=== PATIENT | male | born 1970 | race Caucasian/White ===

== ENCOUNTER 2023-09-28 12:43 | Emergency (ER) | payer BC, SELFPAY ==
[2023-09-28 12:45] VITALS: BP 161/96
--- NOTE | 2023-09-28 13:19 | ED.GENMED ---
History of Present Illness
General
Chief Complaint: Dizziness
Source: patient
Exam Limitations: none
Time Seen by Provider: 09/28/23 12:54
Nursing documentation reviewed up to this point in time: agreed with
Travel History
Have you had any contact with someone who has COVID-19?: No
Do you have any symptoms of coronavirus? Fever > 100 degrees, chills, cough, shortness of breath, sore throat, loss of taste or smell, muscle aches, or headache?: No
History of Present Illness
History of Present Illness:
52-year-old male presents to the emergency department complaining of dizziness/lightheadedness, weakness and fogginess when he woke up this morning. He recently got over COVID, and is still having congestion. No aggravating relieving factors.
Past History
Past History
ED Past Medical History: HTN and Hypercholesterolemia
ED Past Surgical History: Other (Adenoidectomy)
Social History
Tobacco: Non-smoker
Alcohol: None
Drug: None
Employment: Employed
Review of Systems
Review of Systems
Allergies reviewed?: Yes
All Other Systems: Not applicable
Constitutional: Reports no symptoms
EENT: Reports other (Congestion)
Respiratory: Reports no symptoms
Cardiac: Reports no symptoms
ABD/GI: Reports no symptoms
: Reports no symptoms
Musculoskeletal: Reports no symptoms
Skin: Reports no symptoms
Neurological: Reports dizzy and weakness
Endocrine: Reports no symptoms
Hematologic/Lymphatic: Reports no symptoms
Psychiatric: Reports no symptoms
Phy Exam
Physical Exam
Physical Exam:
Physical Exam
General: no apparent distress, not acutely ill
Neck: supple. no meningeal signs. normal posterior pharynx
Heart: s1/s2 regular rate and rhythm, no murmur. equal radial
pulses.
HEENT: Pupils equal round reactive to light, EOMI
Lungs: no acute respiratory distress. clear bilaterally
Abdomen: normal bowel sounds. not tender. no CVAT
Neuro: alert and oriented. no focal neurological deficits cranial nerves II through XII intact
Skin: no rash
Psychiatric: well kept. interactive and cooperative
Extremities: no edema. no calf tenderness. negative homans. good distal pulses
Course
Orders/Labs/Results
Orders:
Orders
09/28/23 12:48
EKG [Electrocardiogram (*1)] Urgent
Reason for Study: Tachycardia
EKG- Treatment ONCE
09/28/23 12:58
Cardiac Monitoring- Treatment ONCE
IV Insert/Care/Rem.- Treatment PRN
09/28/23 13:13
Complete Blood Count/With Diff Urgent
Comprehensive Metabolic Panel Urgent
09/28/23 13:16
CT Head W/o Iv Contrast Urgent
Comment:
Reason For Exam: dizziness
09/28/23 13:17
0.9% Sodium Chloride 1000 ml [Nss] 1,000 ml IV BOLUS
Abnormal Lab Results
09/28/23
13:13
WBC 12.3 H 10^3/uL
(4.8-10.8)
RBC 4.62 L 10^6/uL
(4.70-6.10)
MCH 32.5 H pg
(27.0-31.0)
Absolute Neuts (auto) 8.6 H 10^3/uL
(1.4-6.5)
Sodium 132 L mmol/L
(135-145)
Carbon Dioxide 19 L mmol/L
(22-30)
Creatinine 0.6 L mg/dL
(0.7-1.3)
Glucose 123 H mg/dl
(70-99)
09/28/23 13:13
09/28/23 13:13
Vital Signs
Initial and Last Documented VS:
Initial Vital Signs
Temp Pulse Resp BP Pulse Ox
98.5 F 129 16 161/96 99
09/28/23 12:45 09/28/23 12:45 09/28/23 12:45 09/28/23 12:45 09/28/23 12:45
Last Documented Vital Signs
Temp Pulse Resp BP Pulse Ox
98.5 F 101 16 142/90 94
09/28/23 12:45 09/28/23 14:11 09/28/23 12:45 09/28/23 14:00 09/28/23 14:00
MDM/Problems Addressed
Differential Diagnosis Includes:
Dysrhythmia, hypovolemia, viral syndrome
MDM/Problems Addressed:
52-year-old male with lightheadedness, mild hypokalemia, likely due to viral syndrome, possibly related COVID. Lungs clear, no neurologic deficits. Mild leukocytosis, mild hyponatremia. Patient feels improved after IV fluids. For discharge.
Return precautions given.
*Radiology
Radiology exam reviewed: radiology read reviewed (CT head no acute findings)
*Pulse Oximetry
Patient hypoxic: no
*EKG
Interpreted by ED Provider?: Yes
EKG Intrepretation Date: 09/28/23
EKG Intrepretation Time: 12:51
Interpretation: abnormal
Comparison EKG: no comparison EKG present
Heart Rate: 114
Rate: tachycardiac
Rhythm: sinus tachycardia
[place]: normal axis
Interval: normal interval
QRS Pattern: normal QRS
Ischemia: no ischemia
*[employer] Interpretation
Rate: tachycardiac
Interpretation: abnormal
Heart Rate: 99
Rhythm: sinus tachycardia
*Critical Care Note
Total Time (30-74mins, 75-104mins- exclusive of procedures): Not Applicable
Patient Management
Social determinants of health affecting care: Living situation and Strong social support
Escalation/DeEscalation of care consider admission/obs:
Admit not indicated
ED Attending Note
-
Portions of this chart may have been created with voice recognition software.� Occasional wrong word or��sound alike� substitutions may have occurred due to the inherent limitations of voice recognition software.
Discharge Plan
Departure
Patient Disposition: Home (Routine Discharge)
Date of Disposition: 09/28/23
Time of Disposition: 15:15
Patient with high blood pressure during this ER visit?: Yes
Condition: Good
Discharge Problem:
Hypovolemia, Acute viral syndrome
Instructions: Viral Syndrome (DC), Dizziness
Referrals:
Medhat Damico MD [Family Provider] - Call in 1-3 days for appt
Interventions
Interventions:
*Risk Screen - Suicide Last Done: 09/28/23 12:45
*General Assessment Last Done: 09/28/23 12:45
*Neglect/Abuse Screening Last Done: 09/28/23 12:45
ED- Fall Risk Assessment Last Done: 09/28/23 13:35
*ED COVID-19 Vaccine History Last Done: 09/28/23 13:35
ED- Neurological Assessment Last Done: 09/28/23 13:35
ED- Cardiac Assessment Last Done: 09/28/23 13:35
[2023-09-28] MEDS: NSS 1000 IV (13:21)
[2023-09-28 13:23] LABS: % Basophils 0.2 % (0-2); % Immature Granulocytes 0.3 % (0-0.5); % Lymphocytes 24.7 % (20.5-51.1); % Neutrophils 69.8 % (42.2-75.2); Absolute Monocytes 0.6 10^3/uL (0.1-0.6); Absolute Neutrophils 8.6 10^3/uL (1.4-6.5); Hematocrit 42.4 % (39.0-52.0); Mean Corp Hgb Conc. 35.4 g/dL (33.0-37.0); Mean Corpuscular Hgb 32.5 pg (27.0-31.0); Mean Corpuscular Volume 91.8 fL (80.0-94.0); Mean Platelet Volume 9.1 fL (7.4-10.4); Nucleated Red Blood Cells % 0 % (-); Platelet Count 319 10^3/uL (130-400); Red Blood Cell Count 4.62 10^6/uL (4.70-6.10); Red Cell Dist. Width 11.9 % (11.5-14.5); White Blood Cell Count 12.3 10^3/uL (4.8-10.8)
[2023-09-28 13:35] LABS: ALT (SGPT) 47 U/L (0-50); AST (SGOT) 38 U/L (17-59); Albumin 4.6 g/dl (3.5-5.0); Alkaline Phosphatase 78 U/L (38-126); Blood Urea Nitrogen 10 mg/dl (9-20); Calcium 9.4 mg/dl (8.4-10.2); Carbon Dioxide 19 mmol/L (22-30); Chloride 102 mmol/L (98-107); Glucose 123 mg/dl (70-99); Potassium 3.9 mmol/L (3.5-5.1); Sodium 132 mmol/L (135-145); Total Bilirubin 0.9 mg/dl (0.2-1.3); Total Protein 7.1 g/dl (6.3-8.2); eGFR > 60.00
[2023-09-28 13:40] VITALS: BP 147/86
[2023-09-28 14:00] VITALS: BP 142/90
[2023-09-28 15:26] VITALS: BP 128/75
== END 2023-09-28 15:29 | disposition home or self-care (01) ==
LOC: EMR 12:43
PROVIDERS: EMERGENCY PHYSICIAN Emergency Medicine; FAMILY PHYSICIAN Family Medicine
DX: B34.9 Viral infection, unspecified (principal); E86.1 Hypovolemia; I10 Essential (primary) hypertension
CPT/HCPCS: 99285; 96360; 70450; 80053; 85025; 93005